=== PATIENT | female | born 1990 | race African-American/Black ===

== ENCOUNTER 2019-02-26 02:41 | Emergency (ER) | payer MEDICAID ==
[~2019-02-26] VITALS: Ht 175.3 cm; Wt 73.0 kg
[2019-02-26] MEDS ORDERED: METRONIDAZOLE 500 MG PREMIX 100 ML IV ONE (04:00)
[2019-02-26] MEDS ORDERED: CEFTRIAXONE 1 G PREMIX 50 ML IV ONE (04:00)
[2019-02-26] MEDS ORDERED: KETOROLAC 30MG/ML VIAL IV ONE ×2 (04:15→17:45)
[2019-02-26 04:36] LABS: BASOPHILS % 0.5 % (0.0-2.0); EOSINOPHILS % 0.4 % (0.0-5.0); HEMATOCRIT. 39.1 % (36.0-48.0); HEMOGLOBIN. 12.7 g/dL (12.0-16.0); MEAN CORPUSCULAR HEMOGLOBIN 27.7 pg (28.0-32.0); MEAN CORPUSCULAR VOLUME 85.2 fL (81.0-99.0); MEAN PLATELET VOLUME 8.2 fl (7.4-10.4); MONOCYTES % 7.6 % (2.0-8.0); NEUTROPHILS % 81.5 % (40.0-76.0); PLATELET 295 x1000/uL (130-400); RED BLOOD CELL COUNT 4.59 mill/uL (4.2-5.4); RED CELL DISTRIBUTION WIDTH 13.3 % (11.6-14.6)
[2019-02-26 04:40] LABS: PROTHROMBIN TIME 10.7 sec (9.6-11.0)
[2019-02-26 04:41] LABS: CHLORIDE 105 mEq/L (98-107)
[2019-02-26] MEDS ORDERED: MORPHINE SULFATE 4 MG/ML CPJ (NOT FOR IM USE) IV ONE ×3 (05:20→16:45)
[2019-02-26] MEDS ORDERED: ONDANSETRON HCL 4MG/2ML INJ ONE (05:21)
[2019-02-26] MEDS ORDERED: ONDANSETRON HCL 4MG/2ML INJ IV ONE (05:30)
[2019-02-26] MEDS ORDERED: LEVOFLOXACIN 750MG PREMIX 150 ML IV NR (06:00)
[2019-02-26] MEDS ORDERED: TETANUS, DIPHTHERIA, PERTUSSIS VAC/PF 0.5ML (>7YR OLD) IM ONE (06:00)
[2019-02-26] MEDS ORDERED: ACETAMINOPHEN 325MG TABLET PO ONE (17:45)
[2019-02-26 17:50] VITALS: BP 123/59
[2019-02-26 19:08] LABS: CLARITY URINE CLOUDY (CLEAR); COLOR URINE DARK YELLOW (YELLOW); KETONES URINE TRACE (NEGATIVE); LEUKOCYTE ESTERASE URINE TRACE (NEGATIVE); NITRITE URINE NEGATIVE (NEGATIVE); OCCULT BLOOD URINE NEGATIVE (NEGATIVE); PH URINE 5.5 (4.5-8.0); PROTEIN URINE 1+ (NEGATIVE); SPECIFIC GRAVITY URINE 1.038 (1.005-1.030)
== END 2019-02-26 18:00 | disposition short-term general hospital (02) ==
LOC: ER 02:41
DX: S62.624A Displaced fracture of middle phalanx of right ring finger, initial encounter for closed fracture (principal); L03.011 Cellulitis of right finger; L02.511 Cutaneous abscess of right hand; W54.0XXA Bitten by dog, initial encounter; Y93.89 Activity, other specified; Y92.89 Other specified places as the place of occurrence of the external cause; Y99.8 Other external cause status
CPT/HCPCS: 36415; 73130; 80053; 81003; 85025; 85610; 90471; 90715; 96365; 96367; 96375; 96376; 99285; J0696; J1885; J1956; J2270; J2405; J3490